=== PATIENT | female | born 1995 | race African-American/Black ===

== ENCOUNTER 2016-08-21 23:00 | Emergency (ER) | payer MEDICAID ==
[2016-08-21 23:02] VITALS: BP 108/51; PULSE 75; RESP 16; TEMP 97.5; O2SAT 75; O2SAT 97
[2016-08-21] MEDS ORDERED: NYSTCRE29 TOPICAL (23:41)
--- NOTE | 2016-08-21 23:45 | PD ---
HPI Chief Complaint: Skin Problem Time Seen by Provider: 23:41 Travel History International Travel<30 days: No Contact w/Intl Traveler<30days: No Traveled to known affect area: No History of Present Illness HPI 20-year-old black female presents to emergency Department with complaints of a rash to her armpits over the past month. She states that she's been using the same deodorant she always has. She also states that she uses Dial antibacterial soap. She cannot recall any causative agent. The areas itching and burning at the same time. He does weep a bit. She denies any fever chills. Denies prior skin rashes. Denies . Up-to-date with immunizations. [facility] Past Medical History Medical History: Denies Significant Hx Tetanus Vaccination: < 5 Years ?: Not Past Surgical History Surgical History: No Previous Surgery Social History Alcohol Use: No Tobacco Use: No Allergies-Medications (Allergen,Severity, Reaction): Coded Allergies: No Known Allergies (Unverified , 08/21/16) Review of Systems Except as stated in HPI: all other systems reviewed are Neg Skin: Positive Rash, Positive Itching Physical Exam Narrative GENERAL: Well-developed, well-nourished in no acute distress. Nontoxic appearing. HEAD: Normocephalic, atraumatic. EYES: Pupils equal round and reactive. Extraocular motions intact. No scleral icterus. No injection or drainage. ENT: TMs clear without erythema. The external auditory canals clear. Nose: clear . Posterior pharynx is pink and moist. No tonsillar edema or exudate. Uvula midline. Airway patent. NECK: Trachea midline.Supple, nontender, moves head freely. No central bony tenderness or spasm. CARDIOVASCULAR: Regular rate and rhythm without murmurs, gallops, or rubs. RESPIRATORY: Clear to auscultation. Breath sounds equal bilaterally. No wheezes , rales, or rhonchi. GASTROINTESTINAL: Abdomen soft, non-tender, nondistended. No hepato-splenomegaly , or palpable masses. No guarding. EXTREMITIES: No clubbing, cyanosis, or edema. No joint tenderness, effusion, or edema noted. BACK: Nontender without deformity or crepitance. No flank tenderness. Skin: Patient has scaly dermatitis to the axillas bilaterally. The skin is cracked and weeping. There are some slight maceration with erythema. This appears to be a tinea with localized reaction Data Data Last Documented VS Vital Signs Date Time Temp Pulse Resp B/P Pulse Ox O2 Delivery O2 Flow Rate FiO2 08/21/16 23:02 97.5 75 16 108/51 97 Room Air MDM Medical Decision Making Medical Screen Exam Complete: Yes Emergency Medical Condition: Yes Medical Record Reviewed: Yes Differential Diagnosis MDM: High Differential diagnoses: Abscess, folliculitis, cellulitis, lymphangitis, abrasion, contact dermatitis, tinea Narrative Course This is tinea, contact dermatitis Diagnosis Primary Impression: Tinea Additional Impression: Contact dermatitis Qualified Code: L25.9 - Contact dermatitis, unspecified contact dermatitis type, unspecified trigger Patient Instructions: General Instructions Additional Instructions: Rest. Dove soap. Nystatin with triamcinolone Follow-up the clinic at school next 3-5 days Med/Other Pt SpecificInfo: Prescription(s) given Scripts Nystatin-Triamcinolone 100,000-0.1 Unit/Gm Cream1 Applic TOPICAL Q6HR #60 GM Ref 1 Prov:Edgardo Varela MD 08/21/16 Disposition: 01 DISCHARGE HOME Condition: Stable Parth Jorgensen Aug 21, 2016 23:45
== END 2016-08-22 00:19 | disposition home or self-care (01) ==
LOC: NETRI 23:00
DX: L25.9 Unspecified contact dermatitis, unspecified cause (principal); B35.9 Dermatophytosis, unspecified
CPT/HCPCS: 99282

== ENCOUNTER 2017-02-19 00:05 | Emergency (ER) | payer MEDICAID ==
[~2017-02-19 00:05] MED LIST: NYSTCRE29 TOPICAL
[2017-02-19 00:06] VITALS: BP 109/57; PULSE 87; RESP 16; TEMP 98.2; O2SAT 97
[2017-02-19] MEDS ORDERED: NYSTCRE29 TOPICAL (01:14)
--- NOTE | 2017-02-19 01:20 | PD ---
HPI Chief Complaint: Skin Problem Time Seen by Provider: 00:54 Travel History International Travel<30 days: No Contact w/Intl Traveler<30days: No Traveled to known affect area: No History of Present Illness HPI 21-year-old black female presents to emergency department with complaints of a rash on her antecubital fossa is, neck and axilla. She had been seen in the emergency department in the past the same rash and was given triamcinolone and nystatin. The patient states that this had helped her rash the past. She presents requesting a refill. She denies any fever or chills. She denies any other medical complaints. Symptoms are mild. Positive mild pruritus. No drainage. PFSH Past Medical History Medical History: Denies Significant Hx Tetanus Vaccination: < 5 Years ?: Not Past Surgical History Surgical History: No Previous Surgery Social History Alcohol Use: No Tobacco Use: No Substance Use: No Allergies-Medications (Allergen,Severity, Reaction): Coded Allergies: No Known Allergies (Unverified , 08/21/16) Reported Meds & Prescriptions Reported Meds & Active Scripts Active Nystatin-Triamcinolone 100,000-0.1 Unit/Gm Cream 1 Applic TOPICAL Q6HR Review of Systems Except as stated in HPI: all other systems reviewed are Neg Skin: Positive Rash, Positive Itching, Positive Dryness, No Change in Pigmentation, No Lesions Physical Exam Narrative GENERAL: This is a well-nourished, well-developed patient, in no apparent distress. SKIN: Patient has a mildly scaly dermatitis in the antecubital fossa, neck and axilla consistent with eczema. Ecchymoses or lesions. Warm and dry. HEAD: Atraumatic. Normocephalic. EYES: PERRL, EOMI, no discharge or injection. No scleral icterus. EARS: Clear NOSE: Nasal turbinates appear normal. THROAT: Mucosa pink and moist. Airway patent. NECK: Trachea midline. supple, moves head freely. LUNGS: Clear to auscultation. CV: Regular in rhythm. ABDOMEN: Soft nontender. EXT: No clubbing cyanosis or edema. Data Data Last Documented VS Vital Signs Date Time Temp Pulse Resp B/P (MAP) Pulse Ox O2 Delivery O2 Flow Rate FiO2 02/19/17 00:06 98.2 87 16 109/57 (74) 97 Room Air MDM Medical Decision Making Medical Screen Exam Complete: Yes Emergency Medical Condition: Yes Medical Record Reviewed: Yes Differential Diagnosis MDM: High Differential diagnoses: Abscess, folliculitis, cellulitis, lymphangitis, abrasion, contact dermatitis, eczema Narrative Course This is eczema Diagnosis Primary Impression: Eczema Qualified Codes: L30.9 - Dermatitis, unspecified Patient Instructions: General Instructions Additional Instructions: Rest. Medications as directed. Follow-up with a medical doctor in 1-2 weeks. Return to the ER for emergencies. Med/Other Pt SpecificInfo: Prescription(s) given Scripts Nystatin-Triamcinolone (Nystatin-Triamcinolone) 100,000-0.1 Unit/Gm Cream 1 APPLIC TOPICAL Q6HR for Infection, #60 GM 1 Refill Prov: Pasquale Altamirano MD 02/19/17 Disposition: 01 DISCHARGE HOME Condition: Stable Parth Jorgensen Feb 19, 2017 01:20
== END 2017-02-19 01:38 | disposition home or self-care (01) ==
LOC: NEPD 00:05
DX: L30.9 Dermatitis, unspecified (principal)
CPT/HCPCS: 99283

== ENCOUNTER 2017-06-26 20:57 | Emergency (ER) | payer SELFPAY ==
[~2017-06-26] VITALS: Ht 172.7 cm; Wt 70.0 kg
[2017-06-26 21:02] VITALS: BP 98/59; PULSE 78; RESP 16; TEMP 98.3; O2SAT 100
[2017-06-26] MEDS ORDERED: IBUP-232 PO (21:35)
--- NOTE | 2017-06-26 21:36 | PD ---
HPI Chief Complaint: Transitional Care Liaison Problem/Complaint Time Seen by Provider: 21:11 Travel History International Travel<30 days: No Contact w/Intl Traveler<30days: No Traveled to known affect area: No History of Present Illness HPI 21-year-old female complains of right low abdomen pelvic pain. Patient states that the pain started yesterday and has been persistent since then. Patient states the pain mild cramping pain localized to right low quadrant pelvic area. Patient denies any pain radiation. Patient denies any fever chills. Patient denies any back pain. Patient denies any dysuria or frequency. Patient denies any vaginal discharge or bleeding. PFSH Past Medical History Medical History: Denies Significant Hx Diminished Hearing: No Tetanus Vaccination: Unknown Influenza Vaccination: No ?: Unknown LMP: 06/02/2017 Past Surgical History Surgical History: No Previous Surgery Social History Alcohol Use: No Tobacco Use: No Substance Use: No Allergies-Medications (Allergen,Severity, Reaction): Coded Allergies: No Known Allergies (Unverified , 08/21/16) Reported Meds & Prescriptions Reported Meds & Active Scripts Active Nystatin-Triamcinolone 100,000-0.1 Unit/Gm Cream 1 Applic TOPICAL Q6HR Review of Systems General / Constitutional: No: Fever Eyes: No: Visual changes HENT: No: Headaches Cardiovascular: No: Chest Pain or Discomfort Respiratory: No: Shortness of Breath Gastrointestinal: Positive: Abdominal Pain Genitourinary: Positive: Pelvic Pain, No: Dysuria Musculoskeletal: No: Pain Skin: No Rash Neurologic: No: Weakness Psychiatric: No: Depression Endocrine: No: Polydipsia Hematologic/Lymphatic: No: Easy Bruising Physical Exam Narrative GENERAL: Well-nourished, well-developed patient. SKIN: Focused skin assessment warm/dry. HEAD: Normocephalic. EYES: No scleral icterus. No injection or drainage. NECK: Supple, trachea midline. No JVD or lymphadenopathy. CARDIOVASCULAR: Regular rate and rhythm without murmurs, gallops, or rubs. RESPIRATORY: Breath sounds equal bilaterally. No accessory muscle use. GASTROINTESTINAL: Abdomen soft, non-tender, nondistended. MUSCULOSKELETAL: No cyanosis, or edema. BACK: Nontender without obvious deformity. No CVA tenderness. Pelvic exam: Patient has small amount of whitish vaginal discharge. No cervical motion tenderness. Uterus is nonenlarged nontender some palpation. Mild tenderness on palpation right adnexal area. No adnexal mass. Data Data Last Documented VS Vital Signs Date Time Temp Pulse Resp B/P (MAP) Pulse Ox O2 Delivery O2 Flow Rate FiO2 06/26/17 21:02 98.3 78 16 98/59 (72) 100 Room Air Orders Orders Gc And Chlamydia Pcr (06/26/17 21:13) Wet Prep Profile (06/26/17 21:13) Ed Urine Pregnancytest Poc (06/26/17 21:13) Urinalysis - C+S If Indicated (06/26/17 21:15) [facility] Medical Decision Making Medical Screen Exam Complete: Yes Emergency Medical Condition: Yes Interpretation(s) Urine test negative. Wet prep, GC chlamydia culture pending. Differential Diagnosis Differential diagnosis including ovarian cyst, cervicitis, PID, ectopic . Narrative Course 21-year-old female with right pelvic pain since yesterday. Examination is benign. Diagnosis Primary Impression: Right ovarian cyst Patient Instructions: General Instructions Med/Other Pt SpecificInfo: Prescription(s) given Scripts Ibuprofen (Ibuprofen) 600 Mg Tab 600 MG PO TID for Pain, #30 TAB 0 Refills Prov: Velasquez Sinclair MD 06/26/17 Disposition: 01 DISCHARGE HOME Condition: Stable Velasquez Sinclair MD Jun 26, 2017 21:36
[2017-06-26 21:52] LABS: BILIRUBIN, URINE NEG (NEG); BLOOD, URINE NEG (NEG); GLUCOSE,URINE NEG (NEG); KETONE, URINE NEG (NEG); NITRITE,URINE NEG (NEG); PH, URINE 6.5 (5.0-8.5); SQUAMOUS EPITHELIAL CELL URINE 7 /hpf (0-5); URINE COLOR YELLOW (YELLW/STRAW); URINE LEUKOCYTE ESTERASE NEG (NEG)
== END 2017-06-26 21:54 | disposition home or self-care (01) ==
LOC: NEPD 20:57
DX: N83.201 Unspecified ovarian cyst, right side (principal)
CPT/HCPCS: 81001; 84703; 87210; 87491; 87591; 99283